=== PATIENT | male | born 1970 | race Caucasian/White ===

== ENCOUNTER → 2016-07-12 | Emergency (ER) | payer SELFPAY ==
--- NOTE | 2016-07-13 04:00 | Emergency Room Report ---
Medical Decision Making Diagnostic Impression: Primary Impression: Overdose Qualified Codes: T50.901A - Poisoning by unspecified drugs, medicaments and biological substances, accidental (unintentional), initial encounter ER Course Patient brought in by EMS for possible overdose on narcotics. Patient was given Narcan in the field and is feeling better. Patient in ambulance today. States he does not want to be evaluated. Like to be discharged. Understands the risks of leaving. Patient has competency to make her own decisions. Signed AMA form. Diagnoses-overdose Patient leaves AMA Status: improved Disposition: AGAINST MEDICAL ADVICE Condition: Stable KAYE ROCHE M.D. Jul 13, 2016 04:00
== END | disposition left against medical advice (07) ==
LOC: EDBD 21:24 → EMR 21:45
DX: T50.901A Poisoning by unspecified drugs, medicaments and biological substances, accidental (unintentional), initial encounter (principal); X58.XXXA Exposure to other specified factors, initial encounter; Y93.9 Activity, unspecified; Y92.9 Unspecified place or not applicable
CPT/HCPCS: 99283